=== PATIENT | male | born 1955 | race Hispanic/Latino ===

== ENCOUNTER 2017-11-27 03:52 | Inpatient (IN) | payer SELFPAY ==
[2017-11-27] MEDS ORDERED: ASPIRIN PO ONE (04:06)
[2017-11-27 04:27] LABS: Basophils # (Auto) 0.1 K/mm3 (0.0-0.1); Basophils % (Auto) 0.8 % (0.0-1.8); Eosinophils # (Auto) 0.2 K/mm3 (0.0-0.4); Eosinophils % (Auto) 2.7 % (0.0-4.3); Hematocrit 40.1 % (35.5-45.6); Hemoglobin 13.8 gm/dl (11.8-15.2); Lymphocytes # (Auto) 2.7 K/mm3 (1.2-5.4); Lymphocytes % (Auto) 31.4 % (13.4-35.0); Mean Corpuscular HGB Conc 34 % (32-34); Mean Corpuscular Hemoglobin 30 pg (28-32); Mean Corpuscular Volume 86 fl (84-94); Monocytes # (Auto) 0.6 K/mm3 (0.0-0.8); Monocytes % (Auto) 6.6 % (0.0-7.3); Platelet Count 269 K/mm3 (140-440); Red Blood Count 4.64 M/mm3 (3.65-5.03); Red Cell Distribution Width 14.5 % (13.2-15.2)
[2017-11-27 05:04] LABS: BUN/Creatinine Ratio 23; Blood Urea Nitrogen 16 mg/dL (9-20); Calcium 8.6 mg/dL (8.4-10.2); Hemolysis Index 7
[2017-11-27] MEDS ORDERED: DILAUDID IV ONE ×2 (07:11→12:20)
--- NOTE | 2017-11-27 07:11 | Emergency Department Report ---
ED Abdominal Pain HPI - General Chief Complaint: Chest Pain Stated Complaint: CHEST PAIN Time Seen by Provider: 11/27/17 07:06 Source: patient Mode of arrival: Ambulatory Limitations: No Limitations - History of Present Illness Initial Comments: Patient is 62-year-old male presents emergency with complaints of right flank pain that is radiating to his back and his right ribs. Patient states the pain is 10 out of 10. Patient states the pain is worse with movement and palpation and better with rest. Patient denies fever/chills. . Patient denies constipation and blood in stool. Patient denies diarrhea. Patient denies nausea or vomiting. Patient also complains of dysuria.. Patient states that he has had multiple UTIs over the past 2 months and had multiple rounds of oral antibiotics MD Complaint: abdominal pain -: Sudden, days(s) (2 days ago) Location: R flank Radiation: back, chest Migration to: no migration Severity: severe Severity scale (0 -10): 10 Quality: stabbing Consistency: constant Improves With: rest Worsens With: movement Associated Symptoms: denies: nausea, vomiting, diarrhea, fever, chills, constipation, dysuria, hematemesis, hematochezia, melena, hematuria, anorexia, syncope - Related Data Home Medications Medication Instructions Recorded Confirmed Last Taken Metformin HCl [Glucophage ER] 750 mg PO QDAY 07/31/13 07/31/13 Unknown glipiZIDE [glipiZIDE ER] 5 mg PO QAM 07/31/13 07/31/13 Unknown Previous Rx's Medication Instructions Recorded Last Taken Type Aspirin [Aspirin BABY CHEW TAB] 81 mg PO QDAY #30 tab.chew 08/04/13 Unknown Rx Carvedilol [Coreg] 12.5 mg PO BID #60 tablet 08/04/13 Unknown Rx Lisinopril [Zestril TAB] 10 mg PO QDAY #30 tablet 08/04/13 Unknown Rx Prasugrel [Effient] 10 mg PO QDAY #30 tablet 08/04/13 Unknown Rx Rosuvastatin (Nf) [Crestor] 20 mg PO QHS #30 tablet 08/04/13 Unknown Rx Allergies Allergy/AdvReac Type Severity Reaction Status Date / Time No Known Allergies Allergy Unverified 07/31/13 11:36 ED Review of Systems ROS: Stated complaint: CHEST PAIN Other details as noted in HPI Constitutional: denies: chills, fever Eyes: denies: eye pain, eye discharge, vision change ENT: denies: ear pain, throat pain Respiratory: denies: cough, shortness of breath, wheezing Cardiovascular: denies: chest pain, palpitations Endocrine: no symptoms reported Gastrointestinal: abdominal pain. denies: nausea, diarrhea Genitourinary: denies: urgency, dysuria Musculoskeletal: denies: back pain, joint swelling, arthralgia Skin: denies: rash, lesions Neurological: denies: headache, weakness, paresthesias Psychiatric: denies: anxiety, depression Hematological/Lymphatic: denies: easy bleeding, easy bruising ED Past Medical Hx - Past Medical History Previous Medical History?: Yes Hx Hypertension: Yes Hx CVA: Yes Hx Diabetes: Yes Hx Asthma: Yes - Surgical History Past Surgical History?: No - Family History Family history: no significant - Social History Smoking Status: Current Every Day Smoker Substance Use Type: Marijuana - Medications Home Medications: Home Medications Medication Instructions Recorded Confirmed Last Taken Type Metformin HCl [Glucophage ER] 750 mg PO QDAY 07/31/13 07/31/13 Unknown History glipiZIDE [glipiZIDE ER] 5 mg PO QAM 07/31/13 07/31/13 Unknown History Aspirin [Aspirin BABY CHEW TAB] 81 mg PO QDAY #30 tab.chew 08/04/13 Unknown Rx Carvedilol [Coreg] 12.5 mg PO BID #60 tablet 08/04/13 Unknown Rx Lisinopril [Zestril TAB] 10 mg PO QDAY #30 tablet 08/04/13 Unknown Rx Prasugrel [Effient] 10 mg PO QDAY #30 tablet 08/04/13 Unknown Rx Rosuvastatin (Nf) [Crestor] 20 mg PO QHS #30 tablet 08/04/13 Unknown Rx ED Physical Exam - General Limitations: No Limitations General appearance: alert, in no apparent distress - Head Head exam: Present: atraumatic, normocephalic - Eye Eye exam: Present: normal appearance - ENT ENT exam: Present: mucous membranes moist - Neck Neck exam: Present: normal inspection - Respiratory Respiratory exam: Present: normal lung sounds bilaterally, chest wall tenderness (right rib ttp). Absent: respiratory distress - Cardiovascular Cardiovascular Exam: Present: regular rate, normal rhythm. Absent: systolic murmur, diastolic murmur, rubs, gallop - GI/Abdominal GI/Abdominal exam: Present: soft, tenderness (rt flank ttp. ), normal bowel sounds - Rectal Rectal exam: Present: deferred - Extremities Exam Extremities exam: Present: normal inspection - Back Exam Back exam: Present: normal inspection, CVA tenderness (R) - Neurological Exam Neurological exam: Present: alert, oriented X3 - Psychiatric Psychiatric exam: Present: normal affect, normal mood - Skin Skin exam: Present: warm, dry, intact, normal color. Absent: rash ED Course Vital Signs 11/27/17 11/27/17 11/27/17 04:25 05:51 05:55 Temperature 98.4 F 98.6 F Pulse Rate 99 H 89 Respiratory 20 16 Rate Blood Pressure 147/86 Blood Pressure 175/96 [Left] O2 Sat by Pulse 94 97 97 Oximetry 11/27/17 11/27/17 11/27/17 06:00 07:00 08:01 Temperature Pulse Rate 89 93 H 94 H Respiratory 21 21 18 Rate Blood Pressure 183/99 173/103 173/103 Blood Pressure [Left] O2 Sat by Pulse 97 95 Oximetry 11/27/17 11/27/17 11/27/17 08:20 08:50 09:01 Temperature Pulse Rate 95 H Respiratory 18 18 22 Rate Blood Pressure 173/103 Blood Pressure [Left] O2 Sat by Pulse Oximetry 11/27/17 11/27/17 11/27/17 10:01 11:01 12:01 Temperature Pulse Rate 94 H 97 H 94 H Respiratory 15 17 23 Rate Blood Pressure 173/103 173/103 196/113 Blood Pressure [Left] O2 Sat by Pulse 89 Oximetry 11/27/17 11/27/17 11/27/17 12:31 13:00 13:01 Temperature Pulse Rate 94 H Respiratory 18 21 18 Rate Blood Pressure 201/89 Blood Pressure [Left] O2 Sat by Pulse 91 Oximetry - Reevaluation(s) Reevaluation #1: Discussed all results with patient. Discussed plan of care patient. Patient agrees plan of care and admission. 11/27/17 12:42 - Consultations Consultation #1: Was consulted for admission. Hospitalist to admit patient and assume care. Orders placed 11/27/17 12:42 ED Medical Decision Making - Lab Data Result diagrams: 11/27/17 04:08 11/27/17 04:08 - EKG Data -: EKG Interpreted by Ct EKG shows normal: sinus rhythm, intervals, QRS complexes, ST-T waves Rate: normal - EKG Data Interpretation: LVH, other (pvc, axis deviation) - Radiology Data Radiology results: report reviewed FINDINGS: Contrast bolus is satisfactory. No pulmonary embolus is identified. Thyroid gland: Normal. Tracheobronchial tree: Normal. Esophagus: Normal. Heart: Normal. Pericardium: Normal. Mediastinum: Normal. Lung Diaz: Mild paraseptal emphysematous changes are identified in the upper lobes. No evidence for mass, nodule or infiltrate. No underlying interstitial lung disease. Pleural Spaces: Normal. Musculoskeletal: Intact. Mild thoracic spondylosis. IMPRESSION: No evidence for pulmonary embolus. Mild emphysematous changes. Transcribed By: TTR Dictated By: MISTI RADER JR, MD Electronically Authenticated By: MISTI RADER JR, MD Signed Date/Time: 11/27/17 1146 FINDINGS: Lung bases: Normal. Liver: Normal. Biliary system: Normal. Pancreas: Normal. Spleen: Mild splenomegaly measures 17 cm in coronal plane. No focal splenic lesion is appreciated. Kidneys/ureters/bladder: Mild cortical scarring is suspected in the left kidney. The right kidney is unremarkable. There appears to be 1 or 2 tiny, punctate calyceal stones in the inferior right kidney. The ureters are normal course and caliber. No ureteral stones are identified the bladder contains a small amount of gas which may be secondary to instrumentation. The bladder wall is within normal limits. Adrenal glands: Normal. Aorta: Normal. Intestines: Within normal limits given no oral contrast was administered. Mild fecal retention is noted. Appendix: Not confidently identified. Pelvic viscera: Normal. Ascites: None. Adenopathy: None. Musculoskeletal: Mild thoracolumbar spondylosis. A small umbilical hernia measuring approximately 2 cm containing fat is noted. IMPRESSION: Tiny punctate stones in the inferior right kidney. No ureteral stones or hydronephrosis. Small amount of gas in the bladder which could be iatrogenic. Mild fecal retention. No acute inflammatory process is appreciated. Small umbilical hernia containing fat. Transcribed By: TTR Dictated By: MISTI RADER JR, MD Electronically Authenticated By: MISTI RADER JR, MD Signed Date/Time: 11/27/17 0745 - Medical Decision Making This 62-year-old mellitus emergency room with complaints of abdominal pain, right flank pain, right chest pain. Chest pain secondary to chest wall pain and rib pain. Chronic enzymes have been negative. Patient's also had a CTA of the chest which was negative. Patient's abdominal pain appears to be secondary to a long ongoing UTI. Patient was admitted to the hospitalist service for further evaluation treatment. Patient is being admitted because patient has full L of multiple oral outpatient antibiotics. - Differential Diagnosis abdominal pain. Chest pain. UTI. Critical care attestation.: If time is entered above; I have spent that time in minutes in the direct care of this critically ill patient, excluding procedure time. ED Disposition Clinical Impression: Abdominal pain, Rt flank pain, Rib pain on right side Chest pain Qualifiers: Chest pain type: unspecified Qualified Code(s): R07.9 - Chest pain, unspecified Disposition: DC-09 OP ADMIT IP TO THIS HOSP Is pt being admited?: Yes Does the pt Need Aspirin: No Condition: Serious Time of Disposition: 12:43
[2017-11-27 07:36] LABS: Bilirubin,Urine NEG (Negative); Blood,Urine NEG (Negative); Color,Urine Yellow (Yellow); Mucus,Urine FEW /HPF; Protein,Urine <15 mg/dL mg/dL (Negative); Urobilinogen,Urine < 2.0 mg/dL (<2.0)
--- NOTE | 2017-11-27 07:46 | Cat Scan Report ---
CT ABDOMEN PELVIS WITHOUT CONTRAST: HISTORY: Flank pain. COMPARISON: none. TECHNIQUE: Helical CT in 1.25mm intervals without IV contrast. Sagittal and coronal reconstructions. FINDINGS: Lung bases: Normal. Liver: Normal. Biliary system: Normal. Pancreas: Normal. Spleen: Mild splenomegaly measures 17 cm in coronal plane. No focal splenic lesion is appreciated. Kidneys/ureters/bladder: Mild cortical scarring is suspected in the left kidney. The right kidney is unremarkable. There appears to be 1 or 2 tiny, punctate calyceal stones in the inferior right kidney. The ureters are normal course and caliber. No ureteral stones are identified the bladder contains a small amount of gas which may be secondary to instrumentation. The bladder wall is within normal limits. Adrenal glands: Normal. Aorta: Normal. Intestines: Within normal limits given no oral contrast was administered. Mild fecal retention is noted. Appendix: Not confidently identified. Pelvic viscera: Normal. Ascites: None. Adenopathy: None. Musculoskeletal: Mild thoracolumbar spondylosis. A small umbilical hernia measuring approximately 2 cm containing fat is noted. IMPRESSION: Tiny punctate stones in the inferior right kidney. No ureteral stones or hydronephrosis. Small amount of gas in the bladder which could be iatrogenic. Mild fecal retention. No acute inflammatory process is appreciated. Small umbilical hernia containing fat.
--- NOTE | 2017-11-27 07:47 | XRay Report ---
ROUTINE CHEST, TWO VIEWS: HISTORY: chest pain. The trachea, heart, mediastinal contour, lung adams and bony thorax are unremarkable. IMPRESSION: Unremarkable chest x-ray.
[2017-11-27] MEDS ORDERED: NACL 0.9% 1000 ML 1,000 ML IV ONE ×2 (11:18→12:30)
--- NOTE | 2017-11-27 11:47 | Cat Scan Report ---
CTA CHEST: HISTORY: chest pain. COMPARISON: none. TECHNIQUE: Helical CT in 1.25mm intervals following IV contrast. Pulmonary embolus protocol. Sagittal and coronal reformatted images. Rotational MIP images. FINDINGS: Contrast bolus is satisfactory. No pulmonary embolus is identified. Thyroid gland: Normal. Tracheobronchial tree: Normal. Esophagus: Normal. Heart: Normal. Pericardium: Normal. Mediastinum: Normal. Lung Diaz: Mild paraseptal emphysematous changes are identified in the upper lobes. No evidence for mass, nodule or infiltrate. No underlying interstitial lung disease. Pleural Spaces: Normal. Musculoskeletal: Intact. Mild thoracic spondylosis. IMPRESSION: No evidence for pulmonary embolus. Mild emphysematous changes.
[2017-11-27] MEDS ORDERED: ROCEPHIN/NS 2 GM/100 ML 2 GM/100 ML BAG IV ONE (12:18)
[2017-11-27 13:13] VITALS: BP 201/89
--- NOTE | 2017-11-27 18:55 | History and Physical Report ---
History of Present Illness Date of examination: 11/27/17 Date of admission: 11/27/17 12:39 Chief complaint: Chief complaint Right flank pain for couple days History of present illness: History of Present Illness: 62-year-old male with past medical history of type 2 diabetes hypertension hyperlipidemia and coronary artery disease presents with right flank pain which is about 10 a scale of 1-10. Radiating to the back. No fever or chills. Pain is over 10 on a scale of 1-10. Patient also has right-sided chest pain which is worse with movement and palpation. Patient denies any constipation or blood in the stool. No exacerbating or relieving factors. Pain is sharp and intermittent in nature. Past Medical History Previous Medical History?: Yes Hypertension: Yes CVA: YesDiabetes: YesAsthma: Yes Surgical History Past Surgical History?: No Family History Family history: no significant Social History Smoking Status: Current Every Day Smoker Substance Use Type: Marijuana - Medications Home Medications: Home Medications Medication Instructions Recorded Confirmed Last Taken Type Metformin HCl [Glucophage ER] 750 mg PO QDAY 07/31/13 07/31/13 Unknown History glipiZIDE [glipiZIDE ER] 5 mg PO QAM 07/31/13 07/31/13 Unknown History Aspirin [Aspirin BABY CHEW TAB] 81 mg PO QDAY #30 tab.chew 08/04/13 Unknown Rx Carvedilol [Coreg] 12.5 mg PO BID #60 tablet 08/04/13 Unknown Rx Lisinopril [Zestril TAB] 10 mg PO QDAY #30 tablet 08/04/13 Unknown Rx Prasugrel [Effient] 10 mg PO QDAY #30 tablet 08/04/13 Unknown Rx Rosuvastatin (Nf) [Crestor] 20 mg PO QHS #30 tablet 08/04/13 Unknown Rx Review of systems ROS: Stated complaint: CHEST PAIN Other details as noted in HPI Constitutional: denies: chills, fever Eyes: denies: eye pain, eye discharge, vision change ENT: denies: ear pain, throat pain Respiratory: denies: cough, shortness of breath, wheezing Cardiovascular: denies: chest pain, palpitations Endocrine: no symptoms reported Gastrointestinal: abdominal pain. denies: nausea, diarrhea Genitourinary: denies: urgency, dysuria Musculoskeletal: denies: back pain, joint swelling, arthralgia Skin: denies: rash, lesions Neurological: denies: headache, weakness, paresthesias Psychiatric: denies: anxiety, depression Hematological/Lymphatic: denies: easy bleeding, easy bruising Medications and Allergies Allergies Allergy/AdvReac Type Severity Reaction Status Date / Time No Known Allergies Allergy Unverified 07/31/13 11:36 Home Medications Medication Instructions Recorded Confirmed Last Taken Type Metformin HCl [Glucophage ER] 750 mg PO QDAY 07/31/13 07/31/13 Unknown History glipiZIDE [glipiZIDE ER] 5 mg PO QAM 07/31/13 07/31/13 Unknown History Aspirin [Aspirin BABY CHEW TAB] 81 mg PO QDAY #30 tab.chew 08/04/13 Unknown Rx Carvedilol [Coreg] 12.5 mg PO BID #60 tablet 08/04/13 Unknown Rx Lisinopril [Zestril TAB] 10 mg PO QDAY #30 tablet 08/04/13 Unknown Rx Prasugrel [Effient] 10 mg PO QDAY #30 tablet 08/04/13 Unknown Rx Rosuvastatin (Nf) [Crestor] 20 mg PO QHS #30 tablet 08/04/13 Unknown Rx Exam - Constitutional Vitals: Temp Pulse Resp BP Pulse Ox 98.6 F 94 H 18 201/89 91 11/27/17 05:55 11/27/17 13:00 11/27/17 13:01 11/27/17 13:00 11/27/17 13:00 General appearance: Present: no acute distress, well-nourished - EENT Eyes: Present: PERRL ENT: hearing intact, clear oral mucosa - Neck Neck: Present: supple, normal ROM - Respiratory Respiratory effort: normal Respiratory: bilateral: CTA - Cardiovascular Heart rate: 80 Rhythm: regular Heart Sounds: Present: S1 & S2. Absent: rub, click - Extremities Extremities: no ischemia, pulses intact, pulses symmetrical, No edema Peripheral Pulses: within normal limits - Abdominal General gastrointestinal: Present: soft, tender (tender right flank. No guarding), non-distended, normal bowel sounds Male genitourinary: Present: normal - Rectal Rectal Exam: deferred - Integumentary Integumentary: Present: clear, warm, dry - Musculoskeletal Musculoskeletal: gait normal, strength equal bilaterally - Psychiatric Psychiatric: appropriate mood/affect, intact judgment & insight - Neurologic Neurologic: CNII-XII intact, moves all extremities - Allied Health Allied health notes reviewed: nursing, case management Results - Labs CBC & Chem 7: 11/27/17 04:08 11/27/17 04:08 Labs: Laboratory Last Values WBC 8.8 K/mm3 (4.5-11.0) 11/27/17 04:08 RBC 4.64 M/mm3 (3.65-5.03) 11/27/17 04:08 Hgb 13.8 gm/dl (11.8-15.2) 11/27/17 04:08 Hct 40.1 % (35.5-45.6) 11/27/17 04:08 MCV 86 fl (84-94) 11/27/17 04:08 MCH 30 pg (28-32) 11/27/17 04:08 MCHC 34 % (32-34) 11/27/17 04:08 RDW 14.5 % (13.2-15.2) 11/27/17 04:08 Plt Count 269 K/mm3 (140-440) 11/27/17 04:08 Lymph % (Auto) 31.4 % (13.4-35.0) 11/27/17 04:08 [place] % (Auto) 6.6 % (0.0-7.3) 11/27/17 04:08 Eos % (Auto) 2.7 % (0.0-4.3) 11/27/17 04:08 Baso % (Auto) 0.8 % (0.0-1.8) 11/27/17 04:08 Lymph # 2.7 K/mm3 (1.2-5.4) 11/27/17 04:08 [place] # 0.6 K/mm3 (0.0-0.8) 11/27/17 04:08 Eos # 0.2 K/mm3 (0.0-0.4) 11/27/17 04:08 Baso # 0.1 K/mm3 (0.0-0.1) 11/27/17 04:08 Seg Neutrophils % 58.5 % (40.0-70.0) 11/27/17 04:08 Seg Neutrophils # 5.1 K/mm3 (1.8-7.7) 11/27/17 04:08 Sodium 138 mmol/L (137-145) 11/27/17 04:08 Potassium 3.7 mmol/L (3.6-5.0) 11/27/17 04:08 Chloride 95.5 mmol/L (98-107) L 11/27/17 04:08 Carbon Dioxide 27 mmol/L (22-30) 11/27/17 04:08 Anion Gap 19 mmol/L 11/27/17 04:08 BUN 16 mg/dL (9-20) 11/27/17 04:08 Creatinine 0.7 mg/dL (0.8-1.5) L 11/27/17 04:08 Estimated GFR > 60 ml/min 11/27/17 04:08 BUN/Creatinine Ratio 23 % 11/27/17 04:08 Glucose 360 mg/dL (75-100) H 11/27/17 04:08 POC Glucose 203 (70-105) H 11/27/17 16:15 Calcium 8.6 mg/dL (8.4-10.2) 11/27/17 04:08 Troponin T < 0.010 ng/mL (0.00-0.029) 11/27/17 10:20 Urine Color Yellow (Yellow) 11/27/17 07:19 Urine Turbidity Slightly-cloudy (Clear) 11/27/17 07:19 Urine pH 6.0 (5.0-7.0) 11/27/17 07:19 Ur Specific [place] 1.010 (1.003-1.030) 11/27/17 07:19 Urine Protein <15 mg/dl mg/dL (Negative) 11/27/17 07:19 Urine Glucose (UA) >=500 mg/dL (Negative) 11/27/17 07:19 Urine Ketones Neg mg/dL (Negative) 11/27/17 07:19 Urine Blood Neg (Negative) 11/27/17 07:19 Urine Nitrite Pos (Negative) 11/27/17 07:19 Urine Bilirubin Neg (Negative) 11/27/17 07:19 Urine Urobilinogen < 2.0 mg/dL (<2.0) 11/27/17 07:19 Ur Leukocyte Esterase Mod (Negative) 11/27/17 07:19 Urine WBC (Auto) 40.0 /HPF (0.0-6.0) H 10/10/18 07:19 Urine RBC (Auto) 4.0 /HPF (0.0-6.0) 11/27/17 07:19 Urine Mucus Few /HPF 11/27/17 07:19 Short CBC 11/27/17 Range/Units 04:08 WBC 8.8 (4.5-11.0) K/mm3 Hgb 13.8 (11.8-15.2) gm/dl Hct 40.1 (35.5-45.6) % Plt Count 269 (140-440) K/mm3 BMP 11/27/17 04:08 Sodium 138 Potassium 3.7 Chloride 95.5 L Carbon Dioxide 27 BUN 16 Creatinine 0.7 L Glucose 360 H Calcium 8.6 Cardiac Enzymes 11/27/17 11/27/17 11/27/17 Range/Units 04:08 07:46 10:20 Troponin T < 0.010 < 0.010 < 0.010 (0.00-0.029) ng/mL Urine 11/27/17 Range/Units 07:19 Urine Color Yellow (Yellow) Urine pH 6.0 (5.0-7.0) Ur Specific [place] 1.010 (1.003-1.030) Urine Protein <15 mg/dl (Negative) mg/dL Urine Glucose (UA) >=500 (Negative) mg/dL - Imaging and Cardiology Imaging and Cardiology: Abdominal CAT scan IMPRESSION: Tiny punctate stones in the inferior right kidney. No ureteral stones or hydronephrosis. Small amount of gas in the bladder which could be iatrogenic. Mild fecal retention. No acute inflammatory process is appreciated. Small umbilical hernia containing fat. CT angiogram IMPRESSION: No evidence for pulmonary embolus. Mild emphysematous changes. EKG SINUS RHYTHM VENTRICULAR TRIGEMINY LAD, CONSIDER LEFT ANTERIOR FASCICULAR BLOCK LEFT VENTRICULAR HYPERTROPHY Assessment and Plan Advance Directives: Yes (full code) VTE prophylaxis?: Chemical Plan of care discussed with patient/family: Yes - Patient Problems (1) Acute pyelonephritis Current Visit: Yes Status: Acute Plan to address problem: Patient initiated on IV fluids and IV Rocephin Urine Cultures to be checked (2) Hypertension Current Visit: Yes Status: Chronic Qualifiers: Hypertension type: essential hypertension Qualified Code(s): I10 - Essential (primary) hypertension Plan to address problem: Continue antihypertensives (3) Ventricular trigeminy Current Visit: Yes Status: Chronic Plan to address problem: May benefit from amiodarone We will consult cardiology (4) Type 2 diabetes mellitus Current Visit: Yes Status: Chronic Qualifiers: Diabetes mellitus skilled nursing insulin use: without superintendent terminal use Plan to address problem: Continue oral hypoglycemics and coverage Check hemoglobin A1c (5) Hyperlipidemia Current Visit: Yes Status: Chronic Qualifiers: Hyperlipidemia type: mixed hyperlipidemia Qualified Code(s): E78.2 - Mixed hyperlipidemia Plan to address problem: Continue statins (6) Coronary artery disease Current Visit: Yes Status: Chronic Qualifiers: Coronary Disease-Associated Artery/Lesion type: [place] chin artery [place] vs. transplanted heart: ak chin heart Plan to address problem: Continue Effient (7) DVT prophylaxis Current Visit: Yes Status: Acute Plan to address problem: On Lovenox and GI prophylaxis
[2017-11-27] MEDS ORDERED: TYLENOL PO PRN (18:58)
[2017-11-27] MEDS ORDERED: AMBIEN PO PRN (18:58)
[2017-11-27] MEDS ORDERED: PERCOCET 5/325 PO PRN (18:58)
[2017-11-27] MEDS ORDERED: MORPHINE IV PRN (18:58)
[2017-11-27] MEDS ORDERED: ZOFRAN IV PRN (18:58)
[2017-11-27] MEDS ORDERED: SODIUM CHLORIDE FLUSH SYRINGE 10 ML IV PRN (18:58)
[2017-11-27] MEDS ORDERED: DILAUDID IV PRN (18:58)
[2017-11-27] MEDS ORDERED: METFORMIN HCL 750 MG PO SCH (19:00)
[2017-11-27] MEDS ORDERED: ROCEPHIN/NS 2 GM/100 ML 2 GM/100 ML BAG IV SCH (20:00)
[2017-11-27] MEDS ORDERED: NACL 0.9% 1000 ML 1,000 ML IV SCH (20:00)
[2017-11-27] MEDS ORDERED: EFFIENT PO SCH (20:00)
[2017-11-27] MEDS ORDERED: NON-FORMULARY (Rosuvastatin (Nf) 20 MG) PO SCH (22:00)
[2017-11-27] MEDS ORDERED: SODIUM CHLORIDE FLUSH SYRINGE 10 ML IV SCH (22:00)
[2017-11-27] MEDS ORDERED: PEPCID IV SCH (22:00)
[2017-11-27] MEDS ORDERED: HumaLOG SUB-Q SCH (22:00)
[2017-11-27] MEDS ORDERED: LOVENOX SUB-Q SCH (22:00)
[2017-11-27] MEDS ORDERED: COREG PO SCH (22:00)
[2017-11-28] MEDS ORDERED: BABY ASPIRIN PO SCH (10:00)
[2017-11-28] MEDS ORDERED: GLUCOTROL XL PO SCH (10:00)
[2017-11-28] MEDS ORDERED: ZESTRIL PO SCH (10:00)
== END 2017-11-27 20:30 | disposition left against medical advice (07) | DRG 690 ==
LOC: ED 03:52 → 4A 12:39
PROVIDERS: ADMIT Internal Medicine; ATTEND Internal Medicine
DX: N10 Acute pyelonephritis (principal); Z53.21 Procedure and treatment not carried out due to patient leaving prior to being seen by health care provider; E11.9 Type 2 diabetes mellitus without complications; I10 Essential (primary) hypertension; I25.10 Atherosclerotic heart disease of native coronary artery without angina pectoris; J45.909 Unspecified asthma, uncomplicated; F17.200 Nicotine dependence, unspecified, uncomplicated; E78.2 Mixed hyperlipidemia; F12.90 Cannabis use, unspecified, uncomplicated; Z79.84 Long term (current) use of oral hypoglycemic drugs; Z86.73 Personal history of transient ischemic attack (TIA), and cerebral infarction without residual deficits; Z79.899 Other long term (current) drug therapy; Z79.82 Long term (current) use of aspirin
CPT/HCPCS: 36415; 71046; 71275; 74176; 80048; 81001; 82962; 83036; 84484; 85025; 93005; 93010; J0696; J1170; J7030; Q9967

== ENCOUNTER 2019-01-15 20:57 | Emergency (ER) | payer SELFPAY ==
[2019-01-15 21:14] VITALS: BP 179/104
[2019-01-15] MEDS ORDERED: ASPIRIN 325 MG TAB PO ONE (21:29)
--- NOTE | 2019-01-15 21:29 | Event Note ---
ED Screening Note Date of service: 01/15/19 Time: 21:23 ED Screening Note: Patient report CP started yeaterday. Located left side and radiates to back and shoulder blade. Pain 0/10 and sharp/ H/O CAD, DC with stent. Goes to [facility] for care. Last heart cath probably 4 years ago and and had stent placed here. Diabetes and HTN. Took BC powders a couple hours ago. Positive sob. H/o copd. Alerts and oriented x 3 CV: s1S2. stable vitals ekg stable+ Lungs: Diminished a/e throuhout lung adams CP with h/o mi, CAD and stenr This initial assessment/diagnostic orders/clinical plan/treatment(s) is/are subject to change based on patients health status, clinical progression and re- assessment by fellow clinical providers in the ED. Further treatment and workup at subsequent clinical providers discretion. Patient/guardian urged not to elope from the ED as their condition may be serious if not clinically assessed and managed. Initial orders include: CP protocol
--- NOTE | 2019-01-15 22:22 | XRay Report ---
CHEST 2 VIEWS INDICATION: Chest Pain. COMPARISON: Chest series from 11/24/2017 FINDINGS: Support devices: None. Heart: Within normal limits. Lungs/pleura: Mild diffuse interstitial prominence may at least in part be chronic with no consolidat ion or effusion. No pneumothorax. Additional findings: None. IMPRESSION: 1. No acute findings. Signer Name: Elio Conn MD Signed: 01/15/2019 10:18 PM Workstation Name: [id number]
[2019-01-15 23:08] LABS: Basophils # (Auto) 0.1 K/mm3 (0.0-0.1); Basophils % (Auto) 0.9 % (0.0-1.8); Eosinophils # (Auto) 0.2 K/mm3 (0.0-0.4); Eosinophils % (Auto) 3.4 % (0.0-4.3); Hematocrit 41.5 % (35.5-45.6); Hemoglobin 13.8 gm/dl (11.8-15.2); Lymphocytes # (Auto) 1.9 K/mm3 (1.2-5.4); Lymphocytes % (Auto) 32.1 % (13.4-35.0); Mean Corpuscular HGB Conc 33 % (32-34); Mean Corpuscular Volume 86 fl (84-94); Monocytes # (Auto) 0.6 K/mm3 (0.0-0.8); Monocytes % (Auto) 10.4 % (0.0-7.3); Platelet Count 175 K/mm3 (140-440); Red Blood Count 4.85 M/mm3 (3.65-5.03); Red Cell Distribution Width 14.3 % (13.2-15.2)
[2019-01-15 23:19] LABS: INR 0.94 (0.87-1.13)
[2019-01-15 23:20] LABS: Partial Thromboplastin Time 28.2 Sec. (24.2-36.6)
[2019-01-15 23:32] LABS: Alanine Aminotransferase 15 units/L (7-56); Albumin 3.7 g/dL (3.9-5); BUN/Creatinine Ratio 14; Blood Urea Nitrogen 14 mg/dL (9-20); Calcium 8.7 mg/dL (8.4-10.2); Hemolysis Index 5
== END 2019-01-16 00:50 | disposition left against medical advice (07) ==
LOC: ED 20:57
DX: R07.89 Other chest pain (principal); Z53.21 Procedure and treatment not carried out due to patient leaving prior to being seen by health care provider
CPT/HCPCS: 36415; 71046; 80053; 84484; 85025; 85610; 85730; 93005; 93010